=== PATIENT | female | born 1930 | race Hispanic/Latino ===

== ENCOUNTER 2019-04-09 13:03 | Outpatient (CLI) | payer MEDICARE, OTHER ==
--- NOTE | 2019-04-09 14:26 | ULT ---
RENAL ULTRASOUND: HISTORY: Hypertension. Chronic kidney disease. FINDINGS: The right kidney measures 10.6 cm length. A small cyst from the inferior right renal cortex measures 1.5 cm. No hydronephrosis. The left kidney measures 9.3 cm length. No hydronephrosis or mass lesion. There is mild cortical th inning. Cortical echogenicity appears preserved. The bladder is distended and appears unremarkable. Postvoid evaluation of the bladder reveals moderate residual urine. Postvoid bladder volume recorded at 92 cc. IMPRESSION: 1. Small right renal cyst. Mild cortical thinning as described above. 2. Mild residual urine volume. POS: [facility]
== END 2019-04-09 13:04 | disposition home or self-care (01) ==
LOC: BICULT 13:03
PROVIDERS: ATTEND Internal Medicine Nephrology
DX: I12.9 Hypertensive chronic kidney disease with stage 1 through stage 4 chronic kidney disease, or unspecified chronic kidney disease (principal); N18.3 Chronic kidney disease, stage 3 (moderate); N28.1 Cyst of kidney, acquired
CPT/HCPCS: 76770

== ENCOUNTER 2020-02-22 10:28 | Outpatient (CLI) | payer MEDICARE, OTHER | END 2020-02-22 10:29 | disposition home or self-care (01) | LOC: DTY/OP 10:28 | PROVIDERS: ATTEND Family Medicine Sports Medicine | DX: E11.9 Type 2 diabetes mellitus without complications (principal) | CPT/HCPCS: 97802 ==

== ENCOUNTER 2020-04-05 15:11 | Outpatient (CLI) | payer MEDICARE, OTHER ==
--- NOTE | 2020-04-05 15:56 | BD ---
Exam: DEXA Bone Density 04/05/20 HISTORY: Osteoporosis screening. COMPARISON: None. FINDINGS: Lumbar Spine: BMD (g/cm2) T-SCORE L1 0.799 -1.7 L2 0.831 -1.8 L3 0.898 -1.7 L4 0.823 -2.2 L1-L4 0.837 -1.9 Left Femoral Neck: 0.707 -1.3 Total Left Femur: 0.841 -0.8 WHO classification: Osteopenia. Ten year fracture risk: Major osteoporotic fracture: 11% Hip fracture: 2.9% Impression: Osteopenia with fracture risk as above. POS: [facility]
== END 2020-04-05 15:12 | disposition home or self-care (01) ==
LOC: BICMAMMO 15:11
PROVIDERS: ATTEND Family Medicine Sports Medicine
DX: Z13.820 Encounter for screening for osteoporosis (principal); M85.89 Other specified disorders of bone density and structure, multiple sites
CPT/HCPCS: 77080